=== PATIENT | female | born 1985 | race Hispanic/Latino ===

== ENCOUNTER 2018-08-19 13:40 | Emergency (ER) | payer SELFPAY ==
[2018-08-19 13:52] VITALS: BP 140/84; PULSE 111; RESP 20; TEMP 36.7; O2SAT 100; BMI 22.6
--- NOTE | 2018-08-19 13:53 | ED.ALLEREA ---
HPI - Allergic Reaction General Chief complaint: Allergic Reaction Stated complaint: Throat Swelling Time Seen by Provider: 08/19/18 13:43 Source: patient and EMS Limitations: no limitations History of Present Illness HPI narrative: Patient is a 33-year-old female who presents after an allergic reaction. She said she ate a wall focal he at work and started having her throat swell up and difficulty breathing. EMS administered an EpiPen and 50 mg of Benadryl she overall is feeling better but still feels like her chest is heavy. She never had any rashes or itching. No history of allergic reaction or allergies. MD complaint: allergic reaction Onset (ago): minute(s) Exposure: food Symptoms: difficulty swallowing and difficulty breathing Treatment prior to arrival: benadryl and epinephrine Related Data Previous Rx's Medication Instructions Recorded epinephrine 0.3 mg IM .once PRN #1 each 08/19/18 Allergies Allergy/AdvReac Type Severity Reaction Status Date / Time No Known Drug Allergies Allergy Verified 08/19/18 14:07 Review of Systems Review of Systems All systems reviewed & are unremarkable except as noted in HPI and below Constitutional Denies chills, Denies fever(s), Denies lethargy and Denies weakness ENT Ears, Nose, Mouth, and Throat: Reports as per HPI Cardiovascular Reports chest pain, Denies irregular heart rhythm, Denies lightheadedness, Denies palpitations, Reports dyspnea, Denies dyspnea on exertion and Denies orthopnea Respiratory Denies cough, Reports dyspnea, Denies dyspnea on exertion, Denies stridor and Denies wheezing Gastrointestinal Gastrointestinal: Denies abdominal pain, Denies change in bowel habits, Denies diarrhea, Denies nausea and Denies vomiting Musculoskeletal Denies back pain, Denies muscle weakness, Denies numbness and Denies tingling Integumentary/Breasts Denies pruritus, Denies erythema, Denies rash and Denies wounds Neurologic Denies numbness, Denies tingling and Denies weakness Endocrine Denies palpitations Allergic/Immunologic Denies wheezing [facility] Medical History Healthy adult (Acute) Social History Smoking Status: Never smoker Exam Initial Vital Signs Initial Vital Signs: Vital Signs Temperature 98.0 F 08/19/18 13:52 Pulse Rate 111 H 08/19/18 13:52 Respiratory Rate 20 08/19/18 13:52 Blood Pressure 140/84 08/19/18 13:52 Pulse Oximetry 100 08/19/18 13:52 GENERAL: Well-appearing, well-nourished and in no acute distress. HEENT: Head atraumatic,EOMI, pupils reactive, no neck swelling PHARYNX: No erythema, no tonsillar exudate, no cervical lymphadenopathy CARDIOVASCULAR: Regular rate and rhythm without murmurs, rubs or gallops. RESPIRATORY: Breath sounds equal bilaterally, no wheezes rales or rhonchi. ABDOMEN: Soft, nontender. Normoactive bowel sounds all 4 quadrants. No guarding or rebound. EXTREMITIES: Normal range of motion, no clubbing or edema. Neurovascularly intact NEUROLOGICAL: Alert and oriented x4.Normal gait and speech. Cranial nerves II through XII grossly intact. SKIN: Warm, dry, no laceration, no petechiae, no rashes or lesions. No hives Course Orders Ordered: Discontinued Medications Albuterol (Ventolin) 2.5 mg INH NOW ONE Stop: 08/19/18 13:45 Last Admin: 08/19/18 14:18 Dose: 2.5 mg Methylprednisolone (Solu-Medrol 125 Mg Vial) 125 mg IV NOW ONE Stop: 08/19/18 13:45 Last Admin: 08/19/18 14:14 Dose: 125 mg Vital Signs - 8 hr 08/19/18 13:52 08/19/18 14:14 08/19/18 14:15 Temperature 98.0 F Pulse Rate 111 H 104 H 107 H Respiratory Rate 20 19 20 Blood Pressure 140/84 Blood Pressure [Right Arm] 140/84 Pulse Oximetry 100 100 100 08/19/18 15:08 Temperature Pulse Rate 108 H Respiratory Rate 28 H Blood Pressure Blood Pressure [Right Arm] 123/75 Pulse Oximetry 98 MDM - Allergic Reaction ECG Data Attestation: I personally reviewed and interpreted this ECG as follows: Prior ECG tracings: not available for review Interpretation: Normal sinus rhythm rate 102 [place] interval 180 QRS 104 QTC 400 MDM Narrative Medical decision making narrative: The patient is feeling much better after albuterol. Unclear what she is allergic to. His she is given an EpiPen. Discharge Plan Departure Patient Disposition: Home Clinical Impression: Allergic reaction Discharge Date/Time: 08/19/18 15:22 Interventions: ED Discharge Assessment Last Done: 08/19/18 15:21 Instructions: DI for General Allergic Reactions Activity Restrictions/Additional Instructions: *You have been diagnosed with allergic reaction *What to do: May require allergy testing *Continue to take medications as directed EpiPen if needed for throat swelling tongue swelling lip swelling difficulty breathing *Follow up with your primary care provider in 2-3 days *Return to ER if you should have throat lying tongue swelling, lip swelling, difficulty breathing, chest pain, use of EpiPen [or] any new, worsening or concerning symptoms Prescriptions: New epinephrine 0.3 mg/0.3 mL auto-injector 0.3 mg IM .once PRN (Reason: anaphylaxis) Qty: 1 RF: 0
[2018-08-19 14:14] VITALS: BP 140/84; PULSE 104; RESP 19; O2SAT 100
[2018-08-19] MEDS: methylPREDNISolone 125 MG/2 ML VIAL IV (14:14)
[2018-08-19 14:15] VITALS: PULSE 107; RESP 20; O2SAT 100
[2018-08-19] MEDS: ALBUTEROL 2.5 MG/3 ML NEB (ADULT) INH (14:18)
[2018-08-19 15:08] VITALS: BP 123/75; PULSE 108; RESP 28; O2SAT 98
== END 2018-08-19 15:22 | disposition home or self-care (01) ==
PROVIDERS: Emergency Provider Emergency Medicine
DX: T78.40XA Allergy, unspecified, initial encounter (principal)
CPT/HCPCS: 93005; 94640; 96374; 99282; 99284; J2930; J7613